=== PATIENT | female | born 1960 | race Caucasian/White ===

== ENCOUNTER 2021-07-31 11:25 | Emergency (ER) | payer MEDICARE ==
[~2021-07-31 11:25] MED LIST: FIBER LAXATIVE PO; NAPROSYN500 MG PO; NEURONTIN 400400 MG PO; NORCO 10-325 T1 EACH PO; PERCOCET 7.5-31 EACH PO; PROZAC20 MG PO; SPIRIVA RESPIMAT4 GM INH; STOOL SOFTENER250 MG PO; VALIUM10 MG PO; ZOFRAN4 MG PO
[2021-07-31] MEDS ORDERED: HYDROCODON-ACE1 EAC6 PO (16:11)
== END 2021-07-31 18:30 | disposition home or self-care (01) ==
LOC: ER1 11:25
DX: S42.202A Unspecified fracture of upper end of left humerus, initial encounter for closed fracture (principal); F17.200 Nicotine dependence, unspecified, uncomplicated; J44.9 Chronic obstructive pulmonary disease, unspecified; W19.XXXA Unspecified fall, initial encounter
CPT/HCPCS: 73030; 96374; 96375; 99283; J1170; J3010

== ENCOUNTER → 2021-08-17 | Outpatient (CLI) | payer MEDICARE ==
[~2021-08-17] MED LIST changes: +AMITRIPTYLINE H10 MG PO; +HYDROCODON-ACE1 EAC6 PO; +PROTONIX40 MG PO; +PROVENTIL HFA6.7 GM INH; +TOPROL XL50 MG PO
== END ==
LOC: KOH-I 10:18
DX: S42.352A Displaced comminuted fracture of shaft of humerus, left arm, initial encounter for closed fracture (principal); S42.292A Other displaced fracture of upper end of left humerus, initial encounter for closed fracture; M19.011 Primary osteoarthritis, right shoulder
CPT/HCPCS: 73200

== ENCOUNTER → 2021-08-22 | Day surgery (SDC) | payer MEDICARE ==
[2021-08-22 09:44] LABS: HEMOGLOBIN 15.2 gm/dl (12.3-15.3); RED BLOOD COUNT 4.74 M/UL (4.00-5.10); WHITE BLOOD COUNT 5.9 K/UL (4.5-11.0)
[2021-08-22 10:41] LABS: BUN/CREATININE RATIO 10 (0-10)
== END | disposition home or self-care (01) ==
LOC: OR 08:48
PROVIDERS: Orthopaedic Surgery
PROC: 0LS40ZZ Reposition Left Upper Arm Tendon, Open Approach (ICD-10-PCS; 2021-08-22)
PROC: 3E0T3BZ Introduction of Anesthetic Agent into Peripheral Nerves and Plexi, Percutaneous Approach (ICD-10-PCS; 2021-08-22)
PROC: 0PSD04Z Reposition Left Humeral Head with Internal Fixation Device, Open Approach (ICD-10-PCS; principal; 2021-08-22 15:45)
DX: S42.202A Unspecified fracture of upper end of left humerus, initial encounter for closed fracture (principal); K21.9 Gastro-esophageal reflux disease without esophagitis; J44.9 Chronic obstructive pulmonary disease, unspecified; F17.210 Nicotine dependence, cigarettes, uncomplicated; M81.0 Age-related osteoporosis without current pathological fracture; Z20.822 Contact with and (suspected) exposure to COVID-19; Z79.891 Long term (current) use of opiate analgesic; Z79.899 Other long term (current) drug therapy; W19.XXXA Unspecified fall, initial encounter; Y93.89 Activity, other specified
CPT/HCPCS: 36415; 71045; 73060; 76000; 80048; 85027; 86850; 86900; 86901; 93005; C1713; C1762; J0690; J1100; J1170; J2001; J2250; J2370; J2405; J2704; J2710; J2795; J3010; J3370; J7120; U0002